=== PATIENT | female | born 1945 | race Caucasian/White ===

== ENCOUNTER → 2018-12-02 | Outpatient (CLI) | payer OTHER ==
[~2018-12-02] MED LIST: ALPR.25 PO; BENZ100A PO; MELO7.5 PO; Multiple Vitam1 EAC1 PO; NAPR375 PO; OMEP40CA12 PO; PROP60 PO; PROP80ER PO; SIMV10 PO; VAGIFEM10 MCG VG; VALS80 PO; VENL150ER PO; VENLAFAXINE HC150 MG PO
[2018-12-02 13:10] LABS: BASOPHILS ABSOLUTE AUTO 0.04 K/mm3 (0.00-0.23); BASOPHILS PERCENT AUTO 0 % (0-2); EOSINOPHILS ABSOLUTE AUTO 0.02 K/mm3 (0.00-0.68); EOSINOPHILS PERCENT AUTO 0 % (0-6); Hematocrit 45.1 % (33.0-51.0); Hemoglobin 14.9 g/dL (11.5-16.0); IMMATURE GRAN ABSOLUTE AUTO 0.07 K/mm3 (0.00-0.10); IMMATURE GRAN PERCENT AUTO 1 % (0-1); LYMPHOCYTES ABSOLUTE AUTO 1.41 K/mm3 (0.84-5.20); LYMPHOCYTES PERCENT AUTO 13 % (21-46); MONOCYTES ABSOLUTE AUTO 1.02 K/mm3 (0.16-1.47); MONOCYTES PERCENT AUTO 9 % (4-13); Mean Corpuscular HGB 26.8 pg (26.0-34.0); Mean Corpuscular Volume 81 fL (80-100); NEUTROPHILS ABSOLUTE AUTO 8.75 K/mm3 (1.96-9.15); NEUTROPHILS PERCENT AUTO 77 % (41-73); Platelet Count 266 K/mm3 (150-400); RDW Coefficient Variation 14.6 % (11.7-14.2); RDW Standard Deviation 43.2 fL (35.1-46.3); Red Blood Cell Count 5.57 M/mm3 (3.80-5.20); White Blood Cell Count 11.31 K/mm3 (4.00-11.30)
[2018-12-02 13:16] LABS: Bun/Creatinine Ratio 22.2 (12.0-20.0); Calcium, Blood 9.5 mg/dL (8.5-10.1); Creatinine, Blood 1.26 mg/dL (0.40-1.00)
== END | disposition home or self-care (01) ==
LOC: LAB SHORT 13:02 → EFM RAD 13:02 → EDSTATUS 14:35
PROVIDERS: Family Medicine
DX: J18.0 Bronchopneumonia, unspecified organism (principal); R06.02 Shortness of breath
CPT/HCPCS: 71046; 80048; 83880; 85025

== ENCOUNTER → 2020-09-05 | Outpatient (CLI) | payer MEDICARE | LOC: PLD 11:00 → LAB SHORT 11:00 | DX: N39.0 Urinary tract infection, site not specified (principal) | CPT/HCPCS: 87077; 87086; 87186 ==

== ENCOUNTER → 2021-12-10 | Outpatient (CLI) | payer MEDICARE, OTHER ==
[~2021-12-10] MED LIST changes: +Hair, Skin & N1 EACH PO; +LOSA50 PO; +VENLAFAXINE HC225 MG PO
[2021-12-10 13:15] LABS: Source, Urine Voided
[2021-12-10 14:50] LABS: Bilirubin, Urine Neg (Neg); Blood, Urine Neg (Neg); Glucose Qualitative, Urine Neg (Neg); Ketones, Urine Neg (Neg); Leukocyte Esterase, Urine 2+ (Neg); Nitrite, Urine Neg (Neg); Protein, Urine Neg (Neg); Specific Gravity, Urine 1.015 (1.003-1.022); Urobilinogen, Urine NORM (Normal)
[2021-12-10 15:05] LABS: Appearance, Urine Clear (Clear); Color, Urine Pale Yellow (P-Yellow)
[2021-12-10 15:06] LABS: Bacteria Mod /hpf; Red Blood Cells, Urine 0-2 /hpf (0-2); Squamous Epithelial Cells Rare /hpf (Few)
== END | disposition home or self-care (01) ==
LOC: LAB SHORT 13:13
PROVIDERS: Family Medicine
DX: N39.0 Urinary tract infection, site not specified (principal)
CPT/HCPCS: 81001; 87086

== ENCOUNTER → 2022-03-04 | Outpatient (CLI) | payer OTHER ==
[2022-03-04 15:51] LABS: Appearance, Urine Clear (Clear); Bilirubin, Urine Neg (Neg); Blood, Urine Neg (Neg); Color, Urine Yellow (P-Yellow); Glucose Qualitative, Urine Neg (Neg); Ketones, Urine Neg (Neg); Leukocyte Esterase, Urine Neg (Neg); Nitrite, Urine Neg (Neg); Protein, Urine 1+ (Neg); Specific Gravity, Urine 1.015 (1.003-1.022); Urobilinogen, Urine NORM (Normal)
== END | disposition home or self-care (01) ==
LOC: LAB SHORT 12:00 → LAB 12:00
PROVIDERS: Family Medicine
DX: N39.0 Urinary tract infection, site not specified (principal)
CPT/HCPCS: 87077; 87086; 87186

== ENCOUNTER 2022-05-16 19:12 | Observation (INO) | payer OTHER ==
[~2022-05-16] VITALS: Ht 157.5 cm; Wt 95.1 kg
[~2022-05-16 19:12] MED LIST changes: -LOSA50 PO; +LOSARTAN POTAS100 M1 PO; +PROP120ER PO; -PROP80ER PO; -SIMV10 PO; +Simvastatin10 MG PO
[2022-05-16] MEDS ORDERED: DESVENLAFAXINE50 M3 PO (19:42)
[2022-05-16] MEDS ORDERED: ALPRAZOLAM0.5 M1 PO (19:43)
[2022-05-16 19:55] LABS: BASOPHILS ABSOLUTE AUTO 0.03 K/mm3 (0.00-0.23); BASOPHILS PERCENT AUTO 0 % (0-2); EOSINOPHILS ABSOLUTE AUTO 0.42 K/mm3 (0.00-0.68); EOSINOPHILS PERCENT AUTO 6 % (0-6); Hematocrit 40.5 % (33.0-51.0); IMMATURE GRAN ABSOLUTE AUTO 0.01 K/mm3 (0.00-0.10); IMMATURE GRAN PERCENT AUTO 0 % (0-1); LYMPHOCYTES PERCENT AUTO 26 % (21-46); MONOCYTES ABSOLUTE AUTO 0.52 K/mm3 (0.16-1.47); MONOCYTES PERCENT AUTO 7 % (4-13); Mean Corpuscular HGB 26.6 pg (26.0-34.0); Mean Corpuscular HGB Conc 32.1 g/dL (31.5-36.5); Mean Corpuscular Volume 83 fL (80-100); Mean Platelet Volume 9.9 fL (9.1-12.4); NEUTROPHILS ABSOLUTE AUTO 4.38 K/mm3 (1.96-9.15); NEUTROPHILS PERCENT AUTO 60 % (41-73); Platelet Count 198 K/mm3 (150-400); RDW Standard Deviation 45.5 fL (35.1-46.3); Red Blood Cell Count 4.89 M/mm3 (3.80-5.20); White Blood Cell Count 7.26 K/mm3 (4.00-11.30)
[2022-05-16 20:12] LABS: Ethanol (Alcohol), Blood, Med <3 mg/dL; Magnesium, Blood 2.3 mg/dL (1.6-2.4); Salicylate <1.7 mg/dL (2.8-20.0)
[2022-05-16 20:13] LABS: Acetaminophen, Random <2.0 ug/mL (10.0-30.0); Alanine Aminotransfer (ALT/SGP 23 U/L (12-78); Albumin, Blood 3.5 g/dL (3.4-5.0); Alk Phos 106 U/L (50-136); Anion Gap 6 mmol/L (6-16); Aspartate Aminotrans (AST/SGOT 15 U/L (12-37); Bilirubin, Total 0.7 mg/dL (0.1-1.0); Blood Urea Nitrogen 19 mg/dL (8-24); Bun/Creatinine Ratio 24.1 (12.0-20.0); CO2, Blood 28 mmol/L (21-32); Chloride, Blood 105 mmol/L (98-108); Creatinine, Blood 0.79 mg/dL (0.40-1.00); Globulin, Blood 3.5 g/dL (2.2-4.0); Glomerular Filtration Rate 77 (60-); Glucose, Blood 96 mg/dL (70-99); Potassium, Blood 4.1 mmol/L (3.5-5.5); Sodium, Blood 139 mmol/L (136-145)
[2022-05-16 20:46] LABS: Influenza A, PCR NEGATIVE (NEGATIVE); Influenza B, PCR NEGATIVE (NEGATIVE); Resp Syncytial Virus, PCR NEGATIVE (NEGATIVE); SARS-Cov-2 (COVID-19) PCR, MMC NEGATIVE (NEGATIVE)
[2022-05-16 21:45] LABS: Source, Urine Straight Cath
[2022-05-16] MEDS ORDERED: OZEMPIC0.25 MG/0. SC (22:23)
[2022-05-16] MEDS ORDERED: Primidone50 MG PO (22:24)
[2022-05-16 22:25] LABS: Appearance, Urine Hazy (Clear); Bilirubin, Urine Neg (Neg); Blood, Urine Neg (Neg); Color, Urine Yellow (P-Yellow); Glucose Qualitative, Urine Neg (Neg); Ketones, Urine Neg (Neg); Leukocyte Esterase, Urine Neg (Neg); Nitrite, Urine Neg (Neg); Protein, Urine Neg (Neg); Specific Gravity, Urine 1.025 (1.003-1.022); Urobilinogen, Urine NORM (Normal)
[2022-05-16] MEDS ORDERED: LOPE2C (22:26)
[2022-05-16] MEDS ORDERED: ACET500 PO (22:26)
[2022-05-16 22:59] LABS: Bacteria Mod /hpf; Mucus Light (0-Heavy); Red Blood Cells, Urine 0-2 /hpf (0-2); Squamous Epithelial Cells Mod /hpf (Few); White Blood Cells, Urine 0-2 /hpf (0-5)
[2022-05-16 23:44] LABS: U Amphetamine Screen Not Detected; U Barbituate Screen Not Detected; U Benzodiazapine Screen DETECTED; U Buprenorphine Screen Not Detected; U Cannabinoids Screen Not Detected; U Cocaine Screen Not Detected; U Methadone Screen Not Detected; U Methamphetamine Screen Not Detected; U Opiates Screen Not Detected; U Oxycodone Screen Not Detected; U Phencyclidine Screen Not Detected; U Propoxyphene Screen Not Detected
--- NOTE | 2022-05-17 00:35 | NUR ---
SI NOTE PT STATES THE SHE DOES NOT FEEL SUICIDAL NOW THAT SHE IS ON THE FLOOR. PT STATES THAT SHE FELT SUCIDAL BECAUSE OF FAMILY ITSSUES AND SHE FEELS THAT SHE IS NOT HANDLING THEM WELL. PT STATES THAT SHE HAS THOUGHT ABOUT SICISDE FOR A COUPLE OF MONTHS NOW AND EVEN SEEKED CARE BUT DID NOT HELP. PT IS LETHARGIC BUT A/OX4, ABLE TO ANSWER QUESTIOS APPROPIATELY. STATES THAT SHE NEEDS A SLEEP STUDY FOR APNEA.
--- NOTE | 2022-05-17 00:52 | NUR ---
SI REASSESSMENT WHEN ASKING PT IF SHE FELT LIKE KILLER HERSELF STILL PT STATES NO, IT WAS A ONCE IN A LIFE TIME THING.
--- NOTE | 2022-05-17 05:56 | NUR ---
SHIFT SUMMARY ASSUMED CARE OF PT AT 0015. PT IS A/OX4 BUT LETHARGIC AND FORGETFUL. PT WAS ABLE TO TELL ME SHE WAS IN THE [facility] IN [place] BUT AFTER HAVING THE CONVERSATION, ASKED IF SHE WAS IN [facility]. 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 PT ALSO STATES THAT SHE TOOK HER MEDICATION OVERDOSE ON 05/15 BUT CAREGIVER STATES PT WAS ACTING NORMAL FOR BREAKFAST THE 05/16 BUT WAS ABSENT DURING DINNER AND FOUND UNRESPONSIVE. PT SLEPT T/O THE NIGHT. NO EKG CHANGES. POISON CONTROL STATES TO JUST WATCH FOR SEIZURES AND AND QRS OR QTC CHANGES. PT STATES THAT SHE DOESNT WANT TO KILL HERSELF ANYMORE AND IT WAS A ONE TIME THING. CAREGIVER AGREED THAT PT HAS A COMPLICATED HOME LIFE; PTS CHILDEN ARE INTO DRUGS AND DO OTHER THINGS TO CAUSE PT STRESS. RT REPORTS LA DOES HAVE SLEEP APNEA AND HAD TO PUT OXYGEN ON THE PT CPAP.
--- NOTE | 2022-05-17 07:25 | NUR ---
ASSUMED CARE: PT RESTING QUIETLY AT THIS TIME. NSR IN 60S ON TELE. CPAP IN PLACE. SITTER AT BEDSIDE. NO ACUTE NEEDS AT THIS TIME.
--- NOTE | 2022-05-17 07:53 | NUR ---
PT IS SLOW TO RESPOND BUT ORIENTED TO SELF. WHEN ASKED WHERE SHE WAS SHE SAID "IN BED." UNABLE TO STATE WHAT BUILDING SHE WAS IN. DENIES SI.
--- NOTE | 2022-05-17 14:22 | NUR ---
APS CONTACTED: PT TOLD DR ANDRADE THAT HER SON KASEY IS STEALING HER MONEY FOR DRUGS. PT'S DAUGHTER MAHNAZ CALLED WITH THE SAME ACCUSATION. SPOKE WITH PT DIRECTLY WHO CONFIRMS THAT KASEY IS HER POA AND THAT SHE TOLD HIM TO NOT USE ANY MONEY SO HER BILLS COULD GET PAID BUT SHE THEN RECIEVED AN EVICTION NOTICE YESTERDAY BECAUSE HER RENT HAD NOT BEEN PAID. DISCUSSED WITH EXECUTIVE ADMINISTRATOR. THIS RN CALLED APS TO MAKE REPORT. COMMUNITY EDUCATION COORDINATOR AWARE
--- NOTE | 2022-05-17 17:30 | NUR ---
SHIFT SUMMARY: PT WAS SEEN BY DR SAMS THIS AFTERNOON AND HE REDUCED HER TO LOW SI BECAUSE SHE STATED SHE HAD NO PLANS TO HARM HERSELF WHILE IN THE HOSPITAL. HE IS RECOMMENDING [facility] THOUGH BECAUSE SHE WAS NOT SURE IF SHE WANTED TO STAY ALIVE. APS HAS BEEN CALLED AND PT'S SITUATION WITH SON HAS BEEN REPORTED. MESSAGE LEFT WITH CARBON BRUSHER ASSEMBLER TO DISCUSS PT'S NEED FOR PAYEE WITH DC PLANNING.
--- NOTE | 2022-05-18 05:51 | NUR ---
SHIFT SUMMARY ASSUMED CARE OF PT AT 1900. PT IS A/OX4 BUT STILL LETHARGIC. PT EASILY AWAKENED BUT GOES TO SLEEP QUICKLY. HEART SOUNDS REGULAR. LUNG SOUNDS CLEAR. PT WORE CPAP T/O THE NIGHT. PT HOD NO NEW COMPLAINTS AND WAS CONTIENT T/O THE NIGHT. 1P ASSIST TO BSC. POISON CONTROL CALLED FOR UPDATE BUT HAD NO FURTHER INSTRUCTIONS, STATED THEY WOULD CALL BACK IN THE AM FOR ANOTHER UPDATE.
--- NOTE | 2022-05-18 07:15 | NUR ---
ASSUMED CARE: PT RESTING QUIETLY, NSR IN THE 60S. CPAP IN PLACE. NO ACUTE NEEDS OR CONCERNS.
--- NOTE | 2022-05-18 16:55 | NUR ---
REPORT GIVEN TO MEDICAL FLOOR NURSE. PT TRANSFERRED VIA WHEEL CHAIR TO ROOM 326 WITH TELE. NO ACUTE NEEDS OR CONCERNS.
--- NOTE | 2022-05-18 17:14 | NUR ---
PCU TRANSFER RECEIVED REPORT FROM [facility] EDUCATIONAL SPECIALIST. RECEIVED PT VIA W/C TO ROOM 326. PLACED IN BED, MADE COMFORTABLE, ORIENTED TO ROOM AND UNIT ROUTINE. DENIED ANY DISCOMFORT OR PAIN.
--- NOTE | 2022-05-18 18:23 | NUR ---
SHIFT SUMMARY PT A&O X 3. VSS. IS PLEASANT & COOPERATIVE. HAS VISIBLE TREMORS WHICH IS HER BASELINE. SHE DID EAT DINNER WITH MINIMAL ASSISTANCE. PLAN IS FOR IN-PT PSYCH UPON DC FROM HOSPITAL.
--- NOTE | 2022-05-19 04:39 | NUR ---
SHIFT SUMMARY PATIENT HAD NO ACUTE CHANGES. NO SUICIDAL IDEATION NOTED. AXOX 4 AND ONE ASSIST W/FWW TO BSC. PIV REMAINS INTACT. DUST MIXER NSR 76. ON ROOM AIR STATING MOSTLY >90% ON CONTINUOUS PULSE OXIMETRY WITH OCCASIONAL DROP TO HIGH 70'S AND BACK INTO 90'S SLEEPING. DENIES PAIN, SOB, AND N/V. VSS/AFEBRILE. REPORTED WANTED TO GET TO SLEEP EARLIER IN SHIFT. CALL LIGHT IN REACH. BED IN LOWEST POSITION. WILL CONTINUE TO MONITOR UNTIL DAY SHIFT NURSE ASSUMES CARE.
--- NOTE | 2022-05-19 18:44 | NUR ---
SHIFT SUMMARY PT A&O X 4. VSS. SLEPT MUCH OF THE SHIFT. SAT UP IN CHAIR FOR DINNER. TELE DC'D BY . IS ON CONT BI-OX, SATS ARE >90%. WEARS C-PAP AT [facility]. IS ON RA DURING THE DAY. [facility] STAFF GIVEN UPDATE TODAY. STAFF IS REQUESTING THAT IF PT RETURNS TO [facility] THAT SHE NOT BE ABLE TO MANAGE HER OWN MEDS.
--- NOTE | 2022-05-20 04:14 | NUR ---
SHIFT SUMMARY PATIENT HAD NO ACUTE CHANGES OBSERVED. AXOX 3 AND ONE ASSIST TO BR. RT IN ROOM TO SETUP CPAP FOR NOC. ON CONTINUOUS PULSE OXIMETRY STATING 96%. DENIES PAIN, SOB, AND N/V. VSS/AFEBRILE. SLEPT MOST OF SHIFT. CALL LIGHT IN REACH. BED IN LOWEST POSITION. WILL CONTINUE TO MONITOR UNTIL DAY SHIFT NURSE ASSUMES CARE.
--- NOTE | 2022-05-20 17:31 | NUR ---
DAYSHIFT SUMMARY Patient in bed resting, quiet/cooperative with cares. Sleeping frequently throughout the day. Patients son came to visit, RN checked in with patient. Patient stated it was okay for her son to visit. Vitals stable, no other concerns at this time. No acute changes, awaiting placement.
--- NOTE | 2022-05-21 04:03 | NUR ---
NUISANCE WILDLIFE TRAPPER SUMMARY AWAKE IN BEDISDE RECLINER AT SHIFT COMMENCE. ASKED FOR AND ASSISTED TO BED AT HS. HAS BEEN RESTING QUIETLY WITH FEW INTERRUPTIONS THROUGHOUT NOCT. NO VOICED SELF HARM INTENTIONS. AFFECT CHEERFUL WITH INTERACTING WITH STAFF. CALL LIGHT IN REACH. VSS. WILL CONTINUE TO MONITOR
[2022-05-21] MEDS ORDERED: TRAZ50 PO (11:50)
--- NOTE | 2022-05-21 17:25 | NUR ---
DAYSHIFT SUMMARY Patient doing well today, pleasant with staff, calls appropriately for help. Denies SI, no reports of self harm. MD placed discharge orders, facility stated they need to come tomorrow afternoon to evaluate patient to determine if safe to return. MD hold DC'd today, release of hospital detaination document in hard chart. Vitals stable, will continue to monitor.
--- NOTE | 2022-05-21 23:38 | NUR ---
SILVER DESIGNER SUMMARY PT A/OX4. PLEASANT AND COOPERATIVE. FOUND PT IN BATHROOM AT BEGINNING OF SHIFT; D/NOT USE CALL LIGHT; BED ALARM IN PLACE. VISIBLE TREMORS/WEAKNESS NOTED. ASSISTED BACK TO BED W/FWW. PT C/O OF ITCHY RASH ON LOWER BACK. NOTED RED RAISED/BLOTCHY RASH. FOLLOWED UP W/DR BALLARD; APPROVED CREAM AND REFERRED TO PHARMACY FOR RECOMMENDATION. PT DENIES SI/SELF HARM. WILL CONT TO MONITOR. CALL LIGHT IN REACH.
--- NOTE | 2022-05-22 17:14 | NUR ---
SHIFT SUMMARY: PATIENT A&OX4. PLEASANT AND COOPERATIVE WITH CARE. UP WITH SBA & FWW. USE CALL LIGHT APPROPRIATELY AND HAS BEEN SITTING UP IN CHAIR T/O SHIFT. NO ACUTE CHANGES THIS SHIFT. VITALS SIGNS REVIEWED. VISIBLE TREMORS NOTED. PATIENT HAD SHOWER TODAY WITH BATCH RECORDS CLERK AND TOLERATED WELL. PATIENT REPORT OF ITCHINESS TO LOWER BACK APPLIED NYSTATIN CREAM PER EMAR. AWAITING FOR [facility] RESPONSE TO EVALUATE PATIENT. CALL LIGHT IN REACH.
--- NOTE | 2022-05-23 04:13 | NUR ---
SHIFT SUMMARY PATIENT HAD NO ACUTE CHANGES OBSERVED. AXOX 4 WITH BASELINE TREMORS. ASSIST WITH PO MEDICATION. ONE ASSIST TO BR WITH FWW. PIV REMAINS INTACT. DENIES PAIN, SOB, AND N/V. USES CPAP AT NIGHT STATING >92% ON CONTINUOUS PULSE OXIMETRY. VSS/AFEBRILE. REPORTED WANTED TO GET TO SLEEP EARLY. COOPERATIVE WITH CARE. CALL LIGHT IN REACH. BED IN LOWEST POSITION. WILL CONTINUE TO MONITOR UNTIL DAY SHIFT NURSE ASSUMES CARE.
--- NOTE | 2022-05-23 16:34 | NUR ---
Shift Summary A/O, pleasant/cooperative. Up in chair for lunch and dinner. BM today, voiding well ambulating to bathroom. Calling appropriately. Received call from son who was suppose to be in recovery according to patient. Good appetite. Did not see [facility] come and reasses. Called [facility] RE reassessing patient's qualification to return to [place]. Mary[place]uy, Health Carding Doubler, plans to review patient tomorrow.
--- NOTE | 2022-05-24 04:05 | NUR ---
SHIFT SUMMARY PATIENT HAD NO ACUTE CHANGES. AXOX 4 WITH BASELINE ESSENTIAL TREMORS. ONE ASSIST TO BR. WILL CALL APPROPRIATELY. REPORTED INTERIANO X ONE AND TYLENOL 650 MG GIVEN PER EMAR WITH GOOD EFFECT. VSS/AFEBRILE. DENIES CHEST PAIN, SOB, AND N/V. ON ROOM AIR. WATCHED TV FIRST PART OF SHIFT. COOPERATIVE WITH CARE. CALL LIGHT IN REACH. BED IN LOWEST POSITION. WILL CONTINUE TO MONITOR UNTIL DAY SHIFT NURSE ASSUMES CARE.
--- NOTE | 2022-05-24 18:29 | NUR ---
SHIFT SUMMARY PT A&OX4 AND IN PLEASENT MOOD. ANU IN TO SEE PT THIS SHIFT, ANU STATED UNKNOWN IF RETURN IS SAFE @ THIS TIME. BOYFRIEND IN TO SEE PT THIS SHIFT. CALL LIGHT W/IN REACH. VSS.
--- NOTE | 2022-05-24 23:59 | NUR ---
PT AWAKE DURING SHIFT REPORT, SITTING UP TO CHAIR AT BS, TALKING ON PHONE. PT IS A&O, PLEASANT AND CO-OP WITH CARE. ABLE TO MAKE NEEDS KNOWN. ESSENTIAL TREMORS NOTED; PER REPORT, SINCE PT WAS 20 YRS OF AGE. CALLED FOR ASSIST TO BTHRM; 1P SBA USING FWW. PT AMBULATED TO BTHRM AND THEN TO BED. SCD'S PLACED WHEN BACK TO BED. RT NOTIFIED TO ASSIST WITH BIPAP SET UP AND PLACEMENT. BED ALARM PLACED FOR SAFETY. PT RESTING QUIETLY AT THIS TIME.
--- NOTE | 2022-05-25 07:24 | NUR ---
A&Ox4. PLEASANT AND COOPERATIVE WITH CARE. CPAP AND CONTINUOUS BI-OX AT NIGHT. BED ALARM D/T GETTING UP AND AMBULATING TO BATHROOM WITHOUT CALLING. NO ACUTE CONCERNS T/O THE NIGHT. AWAITING PLACEMENT. REPORT TO ONCOMING RN.
--- NOTE | 2022-05-25 18:50 | NUR ---
SHIFT SUMMARY PT A&OX 4 AND IN PLEASENT MOOD T/O SHIFT. SHOWERED THIS SHIFT. PT UP W/ STEADY GAIT, SBA. BOYFRIEND IN TO SEE PT THIS SHIFT. CALL LIGHT W/IN REACH, CONT. PULSE OX IN PLACE, RA @ THIS TIME. VSS.
--- NOTE | 2022-05-26 07:15 | NUR ---
States it took awhile to fall asleep tonight. refused Cpap but cont biox at 95% on room air. Seemed in good spirits last night. No safety concerns at this time.
--- NOTE | 2022-05-26 17:12 | NUR ---
SHIFT SUMMARY PT A&OX4 AND IN PLEASENT MOOD T/O SHIFT. PT BOYFIEND IN TO VISIT PT DURING VISITING HOURS. PT ENJOYED WATCHING TV SHOW IMPRACTICAL JOKERS, LAUGHING T/O SHIFT. NO SUICIDAL IDEATION VERBALIZED TO THIS RN FRIDAY, FRIDAY, OR THIS SHIFT. PT APPEARS TO BE WELL SPIRITED, HAPPY, LAUGHING AND TALKATIVE. AMBULATING WITH STEADY GAIT. CALL LIGHT W/IN REACH.
--- NOTE | 2022-05-27 06:08 | NUR ---
SHIFT SUMMARY: NO ACUTE CHANGES THIS SHIFT. PATIENT HAS NO COMPLAINTS OF PAIN OR DISCOMFORT. COMLIANT WITH CPAP DURING SLEEP. CALLING FOR ASSIST OOB TO THE BATHROOM APPROPRIATELY.
--- NOTE | 2022-05-27 18:11 | NUR ---
PT PLEASANT AND COOPERATIVE T/O SHIFT, UP TO BEDSIDE CHAIR. NO SUICIDE IDEATION EXPRESSED TO THIS NURSE TODAY. WILL CONTINUE TO MONITOR AND REPORT TO ONCOMING RN.
--- NOTE | 2022-05-28 06:44 | NUR ---
SHIFT SUMMARY: NO ACUTE CHANGES THIS SHIFT, VSS. REPORTED HEADACHE AT HS, TYLENOL WAS GIVEN WITH GOOD EFFECT. COMPLIANTS WITH CPAP WHILE SLEEPING. MAINTAINED STATS ABOVE 90% AT ALL TIMES.
--- NOTE | 2022-05-28 18:51 | NUR ---
NO ACUTE CHANGES NOTED THIS SHIFT, PT ALERT AND ORIENTED, PLEASANT AND COOPERATIVE. NO VERBALIZATION OF SUCIDIAL IDEATION. WILL CONTINUE TO MONITOR AND REPORT TO ONCOMING RN.
--- NOTE | 2022-05-29 07:54 | NUR ---
Rn summary: Patient is alert and oriented. No changes or welder 2nd shift. Pt did use CPAP and Biox on with sats in the mid 90's. Pt is ready for discharge. Pt is independant in room. Call light in reach.
--- NOTE | 2022-05-29 17:35 | NUR ---
NO ACUTE CHANGES THIS SHIFT. PATIENT VERY PLEASANT AND COOPERATIVE WITH CARE. DENIES ANY THOUGHTS OF HARMING HERSELF. TOLERATING REGULAR DIET. CALLS APPROPRIATELY FOR ASSISTANCE. SKIN INTACT. CPAP AT NOC, RA WHILE AWAKE. DENIES ANY PAIN OR DISCOMFORT. AWAITING [facility] CARE PLACEMENT.
--- NOTE | 2022-05-30 04:49 | NUR ---
SHIFT SUMMARY NO ACUTE CHANGES TO PT CONDITION. PT PLEASANT AND COOPERATIVE. NO COMPLAINTS AT THIS TIME. CALL LIGHT WITHIN HER REACH.
--- NOTE | 2022-05-30 17:39 | NUR ---
NO ACUTE CHANGES THIS SHIFT. PATIENT CONTINUES TO BE PLEASANT AND COOPERATIVE WITH CARE. AWAITING SKILLED NURSING CARE PLACEMENT. CALLS APPROPRIATELY FOR ASSISTANCE. VSS, CPAP AT [facility].
--- NOTE | 2022-05-31 05:15 | NUR ---
SUMMARY: PT A/OX4, CALLS APPROPRIATELY TO SPECIFY NEEDS AND IS PLEASANT AND COOPERATIVE W/CARE. SHE'S UP W/SBA AND FWW TO BATHROOM W/TREMOR OBSERVED THAT PT ADMITS HAVING AT BASELINE. PT TOLERATES CPAP AT HS W/CONT BIOX INTACT AND SPO2 WNL ON . VSS/AFEBRILE, NO ACUTE CHANGES. RETIREMENT PLACEMENT PENDING. WCTM AND REPORT TO DAY RN.
--- NOTE | 2022-05-31 18:06 | NUR ---
PATIENT A/OX4, UP WITH FWW AND 1 ASSIST. C/O NASAL CONGESTION, NASAL SPRAY AND GUAIFENESIN ORDERED TO TREAT. VSS, CPAP AT [facility], RA DURING THE DAY. NO OTHER CONCERNS THIS SHIFT. PATIENT AWAITING WEATHERIZATION AND HOUSING INSPECTOR CARE PLACEMENT. PLEASANT AND COOPERATIVE WITH CARE.
--- NOTE | 2022-06-01 06:08 | NUR ---
SHIFT SUMMARY PT IS ALERT AND ORIENTED. THERE HAVE BEEN NO ACUTE CHANGES T/O THE SHIFT. PT DENIES CHEST PAIN/PRESSURE OF SOB. PT'S ADMINISTRATIVE SUPPORT ASSISTANT WAS ELEVATED THIS AM. OTHER VITALS ARE STABLE AND IS ON ROOM AIR WITH SATS ABOVE 92%. SHE HAS BEEN USING CPAP T/O THE NIGHT. SHE HAS BEEN GETTING UP TO USE THE BATHROOM AND TOLERATING WELL. CALL LIGHT IS WITHIN REACH.
--- NOTE | 2022-06-01 06:11 | NUR ---
SHIFT SUMMARY PT IS ALERT AND ORIENTED. PT VITALS ARE STABLE AND IS ON 2LNC WITH SATS ABOVE 92%. PT DESATS INTO HIGH 80'S AND LOW 90'S WHEN NOT WEARING OXYGEN BUT WILL REFUSE TO WEAR IT DESPITE PT EDUCATION. SHE REFUSES TO WEAR PULSE OXIMETER WELL. 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 ANXIETY MEDS WERE GIVEN LAST NIGHT PER ORDER. PT REPORTS FEELING BETTER AND NOT SOB WHILE WEARING NC. SHE DENIES CHEST PAIN/PRESSURE. SHE IS ABLE TO GET UP TO BSC WITH MINIMAL ASSIST. CALL LIGHT IS WITHIN REACH.
--- NOTE | 2022-06-02 06:55 | NUR ---
Shift Summary Appears to have slept thoughout the night. Biox 93-91% while sleeping. Stated earlier in the shift that the nasal congestion had improved. Currently waiting for a "hearing" concering her living arrangemnts with [facility].
--- NOTE | 2022-06-03 04:29 | NUR ---
Shift Summary Still seems in good spirits. Discussed conversation with her son and his challenges. Hearing concering her living arrangemenst is 06/04 and she will need to facetime the meeting.
--- NOTE | 2022-06-04 05:24 | NUR ---
SHIFT SUMMARY: PT IS ALERT AND ORIENTED. PT IS CALM AND COOPERATIVE WITH CARE. PT CALLS APPROPRIATELY. PT IS INDEPENDENT IN THE ROOM. PT DENIES PAIN, NAUSEA, VOMITING, AND SOB. PT SLEPT MUCH OF THE NIGHT WHEN NOT DISTURBED. NO ACUTE CHANGES OR COMPLICATIONS THIS SHIFT. BED IN LOW POSITION, CALL LIGHT WITHIN REACH. WILL REPORT TO DAY NURSE.
--- NOTE | 2022-06-04 18:09 | NUR ---
SHIFT SUMMARY PT HAS HAD NO COMPLAINTS THIS SHIFT. PT UP IN CHAIR FOR ALL MEALS. NO ACUTE CHANGES THIS SHIFT. CALL LIGHT IN REACH. WILL CONTINUE TO MONITOR.
--- NOTE | 2022-06-05 06:01 | NUR ---
SHIFT SUMMARY: PT IS ALERT AND ORIENTED. PT IS CALM AND COOPERATIVE WITH CARE. PT CALLS APPROPRIATELY. PT IS INDEPENDENT IN THE ROOM. PT DENIES PAIN, NAUSEA, VOMITING, AND SOB. NO ACUTE CHANGES OR COMPLICATIONS THIS SHIFT. BED IN LOW POSITION, CALL LIGHT WITHIN REACH. AWAITING PLACEMENT. WILL CONTINUE TO MONITOR.
--- NOTE | 2022-06-05 17:59 | NUR ---
SUMMARY PT SITTING UP IN THE CHAIR AT THE BEDSIDE EATING DINNER, PT HAS BEEN PLEASANT AND COOPERATIVE WITH CARE T/O THE DAY, INDEP IN THE ROOM, PT DENIES PAIN OR SOB, NO COMPLAINTS, VSS, WILL CONT TO MONITOR
--- NOTE | 2022-06-05 19:18 | NUR ---
ASSUMPTION OF CARE: ASSUMED CARE FROM CARLOTA BARCENAS, PATIENT UP TO BATHROOM AND BACK INTO BED INDEPENDENTLY. DENIES NEEDS OR CONCERNS AT THIS TIME. NO C/O. WATCHING TV.
--- NOTE | 2022-06-05 20:07 | NUR ---
ASSESSMENT: PATEINT WATCHING TV, DENIES NEEDS OR C/O AT THIS TIME. MEDICATIONS ADMINISTERED PER RX. PATIENT DOES REPORT SOME MINIMAL TINGLING TO R HAND AND HAS NOTICED R HAND WEAKNESS THAT SHE REPORTS IS NOT ENTIRELY NEW. WILL CONTINUE TO MONITOR FOR ANY CHANGES AND REPORT TO PROVIDER NEEDED.
--- NOTE | 2022-06-06 05:16 | NUR ---
SHIFT SUMMARY: PATIENT HAS BEEN RESTING QUIETLY THROUGHOUT NIGHT. NO C/O OR REQUESTS. AWAKENS EASILY TO VERBAL STIMULI. NO FURTHER CHANGES THIS SHIFT. WILL REPORT TO ONCOMING SHIFT.
--- NOTE | 2022-06-06 17:26 | NUR ---
NO ACUTE CHANGES AT THIS TIME. PT DENIES ANY PAIN AND IS INDEPENDENT IN ROOM. PT IS ABLE TO MAKE NEEDS KNOWN AND HAS CALL LIGHT WITHIN REACH. WILL CONTINUE TO MONITOR.
--- NOTE | 2022-06-06 19:25 | NUR ---
ASSUMPTION OF CARE: PATIENT SITTING UP IN CHAIR FINISHING DINNER AND WATCHING TV. REPORTS SHE HAD A GOOD DAY. DENIES NEEDS OR C/O AT THIS TIME.
--- NOTE | 2022-06-07 03:28 | NUR ---
NURSE NOTE: PATIENT HAS BEEN RESTING QUIETLY WHEN NOT INTERUPTED. AWAKENS EASILY TO VERBAL STIMULI. DENIES NEEDS, C/O, OR REQUESTS.
--- NOTE | 2022-06-08 04:25 | NUR ---
IN FILE OPERATOR SUMMARY NO ACUTE CHANGES. PT INDEPENDENT IN ROOM. PT ON CPAP AND CONTINUOUS PULSE OX T/O THE NIGHT. INTERMITTANT EPISODES OF BRADYCARDIA IN THE 50'S WHILE SLEEPING. PT IS PLEASANT AND COOPERATIVE. C/O OF NECK PAIN; PT USING HEATING PAD; MED W/650MG TYLENOL P/EMAR. PT CALL LIGHT IN REACH.
--- NOTE | 2022-06-09 06:25 | NUR ---
SHIFT SUMMARY ASSUMED CARE OF PT AT APPROX 0200. PT HAS BEEN RESTING COMFORTABLY THROUGHOUT REMAINDER OF SHIFT. CPAP ON FOR SLEEPING. VITAL SIGNS STABLE. NO ACUTE CHANGES. WILL CONTINUE TO MONITOR AND REPORT TO ONCOMING RN.
--- NOTE | 2022-06-09 17:35 | NUR ---
SHIFT SUMMARY PT INDEPENDENT IN ROOM. AMBULATING TO BATHROOM THEN EITHER SITTING IN CHAIR OR LAYING DOWN FOR A NAP. WATCHING TV MOST OF DAY. REPORTS LESS NASAL DRAINAGE THAN YESTERDAY. VISITOR IN TO SHORT TIME.
--- NOTE | 2022-06-10 04:48 | NUR ---
SHIFT SUMMARY NO ACUTE CHANGES OVERNIGHT. VSS. TOLERATING PO INTAKE DENIES N/V. INDEPENDENT IN ROOM. PLAN: WAITING FOR GUARDIANSHIP AND PLACEMENT. PT HAS BEEN CALM AND COOPERATIVE WITH CARE. PLEASANT. AOX4. APPEARS TO HAVE TREMORS WHICH IS HER BASELINE. DENIES DIZZINESS/LIGHTHEADEDNESS. NO IV ACCESS. VOIDING WITHOUT DIFFICULTY. CALL LIGHT WITHIN REACH. WILL PROVIDE REPORT TO ONCOMING NURSE.
--- NOTE | 2022-06-10 18:59 | NUR ---
SHIFT SUMMARY: PT A/O X 4 IND IN ROOM, PLEASANT AND COOPERATIVE. PT DENIES SUICIDE IDEATION OR PLAN. PT SMILES WITH INTERACTIONS. PT HAD VISITOR TODAY FROM [facility] REPRSENTATIVE TO DO EVAL. PT WAS UP IN HER CHAIR MOST OF THE DAY AND WATCHED TV. SHE ATE WELL. PT DID NOT REPORT ANY CONCERNS UNTIL END OF SHIFT WHEN SHE REPORTED SHE FELT WARM. TEMP TAKEN AND WAS 99.4. WILL REPORT TO ONCOMING RN. NO OTHER CONCERNS AT THIS TIME. PT RESTING IN ROOM WITH EYES SHUT RR E/U, LIGHTLY SNORING AT THIS TIME.
--- NOTE | 2022-06-11 04:35 | NUR ---
SHIFT SUMMARY PT AOX4, PLEASANT AND COOPERATIVE WITH CARE. PT IS AWAITING PLACEMENT, POSSIBLY AT [facility] WHO HAS ALREADY EVALUATED HER. BASELINE TREMORS PRESENT. PT INDEPENDANT IN THE ROOM. NO ACUTE EVENTS, VSS, SLEEPING COMFORTABLY.
--- NOTE | 2022-06-11 16:32 | NUR ---
SHIFT SUMMARY PATIENT DENIES PAIN, NAUSEA, AND SHORTNESS OF BREATH. PATIENT UP INDEPENDENT IN ROOM. GOOD APPETITE. LOVENOX DISCONTINUED, XARELTO ORDERED FOR DVT PROPHYLAXIS. FIANCE VISITED. READY FOR DISCHARGE PENDING PLACEMENT. PLEASANT AND COOPERATIVE WITH CARE.
--- NOTE | 2022-06-12 18:08 | NUR ---
SHIFT SUMMARY PATIENT UP INDEPENDENT IN ROOM. COMMUNICATES NEEDS EASILY. DENIES PAIN, NAUSEA, AND SHORTNESS OF BREATH. GOOD APPETITE. PLEASANT AND COOPERATIVE WITH CARE. DISCHARGE PENDING PLACEMENT.
--- NOTE | 2022-06-12 22:13 | NUR ---
PATIENT STATUS NOTE: MEDICATIONS HAVE BEEN ADMINISTERED PER RX. PATIENT DENIES C/O OR NEEDS. READY FOR BED, BI-PAP IN PLACE, DOOR CLOSED PER PATIENT REQUEST. PATIENT IS VERY PLEASANT AND COOPERATIVE WITH CARE.
--- NOTE | 2022-06-13 05:56 | NUR ---
SHIFT SUMMARY: PATIENT RESTING WHEN UNDISTURBED. HAS HAD NO C/O OR REQUESTS T/O NIGHT. NO NEEDS AT THIS TIME. NO FURTHER CHANGES. WILL REPORT TO ONCOMING SHIFT.
--- NOTE | 2022-06-13 18:44 | NUR ---
SHIFT SUMMARY PATIENT INDEPENDENT IN ROOM. PLEASANT AND COOPERATIVE. NO COMPLAINTS OF PAIN, NAUSEA, OR SHORTNESS OF BREATH. AWAITING PLACEMENT IN ASSISTED LIVING FACILITY.
--- NOTE | 2022-06-13 20:03 | NUR ---
191 PT SITTING IN CHAIR AT BEDSIDE, DENIES ANY DISCOMFORT AT THIS TIME. PT REQUESTED A SHOWER, GOT HER STUFF SET UP FOR HER AND CHANGED HER BEDDING. PT WILL LET US KNOW WHEN SHE IS DONE SO SHE CAN GET ON HER CPAP FOR THE NIGHT. PT IS INDEPENDENT. NO OTHER APPARENT SIGNS OF DISTRESS. CALL LIGHT IS IN REACH.
--- NOTE | 2022-06-14 02:27 | NUR ---
06/13/22 2200 PT SITTING IN CHAIR, WATCHING TV. NO APPARENT SIGNS OF DISTRESS. CALL LIGHT IS IN REACH.
--- NOTE | 2022-06-14 02:28 | NUR ---
0000 PT LYING IN BED, AWAKE, WATCHING TV. NO APPARENT SIGNS OF DISTRESS. CALL LIGHT IS IN REACH.
--- NOTE | 2022-06-14 02:28 | NUR ---
PT LYING IN BED, EYES CLOSED, APPEARS TO BE RESTING. BREATHING IS EVEN, UNLABORED. NO APPARENT SIGNS OF DISTRESS. CALL LIGHT IS IN REACH.
--- NOTE | 2022-06-14 06:07 | NUR ---
0400 PT REQUESTED AND RECIEVED XANAX, WILL EVAL FOR EFFECT. NO OTHER APPARENT SIGNS OF DISTRESS. CALL LIGHT IS IN REACH.
--- NOTE | 2022-06-14 06:08 | NUR ---
PT AAO X 4, ON RA. DENIED ANY DISCOMFORT FOR THIS SHIFT.
--- NOTE | 2022-06-14 06:08 | NUR ---
PT LYING IN BED, EYES CLOSED, APPEARS TO BE RESTING. BREATHING IS EVEN, UNLABORED. NO APPARENT SIGNS OF DISTRESS. CALL LIGHT IS IN REACH. NO OTHER CHANGES THIS SHIFT.
--- NOTE | 2022-06-15 05:30 | NUR ---
SHIFT SUMMARY; PT IS AXO X4. PT IS PLEASANT AND OVERALL WAS IN A GOOD MOOD THROUGHOUT THE SHIFT.PT IS INDEPEDENT WHILE AMBULATING IN THE ROOM. PT IS CONTINENT OF URINE AND STOOL AND THEREFORE IS INDEPENDENT WITH BATHROOM PRIVILEDGES. PT DENIES PAIN, SOB OR NASAL DRAINAGE. ESSENTIAL TREMOR IS PRESENT. PT IS CURRENTLY RESTING WITH CPAP ON IN BED, SATING AT 94%. THE PT'S BED IS IN THE LOWEST POSITION AND THE CALL LIGHT IS WITHIN REACH.
--- NOTE | 2022-06-15 17:32 | NUR ---
SHIFT SUMMARY- PT A/OX4, INDEP UP IN ROOM. PT DENIES ANY COMPLAINTS T/O THE DAY. PLEASANT AND COOPERATIVE. GOOD APPETITE. ON ROOM AIR DURING THE DAY AND CPAP AT HS. ESSENTIAL TREMOR NOTED. NO OTHER ACUTE CHANGES THIS SHIFT. PT AWAITING PLACEMENT.
--- NOTE | 2022-06-15 22:00 | NUR ---
PT LAYING IN BED, PT PUT CPAP ON HERSELF. PT HOOKED UP TO CONTINOUS BIOX WHILE SLEEPING WITH CPAP. PT REFUSED SCD'S. PT'S CALL LIGHT IS AT HER SIDE AT THIS TIME.
--- NOTE | 2022-06-16 05:57 | NUR ---
SHIFT SUMMARY: PT IS AXO X3-4, WITH VERY OCCASIONAL FORGETFULLNESS. ESSENTIAL TREMOR IS PRESENT. PT REQUESTED XANAX LAST NIGHT FOR ANXIETY AT APPROXIMATLEY 0330. XANAX WAS GIVEN PER EMAR. CONITNUED TO MONITOR PT TO SEE THAT XANAX HELPED CALM THE PT. PT WAS PLEASANT THROUGHOUT THE SHIFT WITH NO ACUTE CHANGES MEDICALLY. PT IS CURRENTLY RESTING IN BED WITH CPAP AND CONTINOUS BIOX ON. PT SATED 92-95% THROUGHOUT THE NIGHT. CURRENTLY SATING AT 92%. CALL LIGHT IS AT BEDSIDE.
--- NOTE | 2022-06-16 18:12 | NUR ---
SHIFT SUMMARY- PT A/O, PLEASANT AND COOPERATIVE. INDEP UP IN ROOM. PT DENIES ANY COMPLAINTS T/O THE DAY. NO OTHER ACUTE CHANGES. CONTINUES TO AWAIT PLACEMENT.
--- NOTE | 2022-06-17 05:14 | NUR ---
SHIFT SUMMARY: PT IS AXO X4 WITH OCCASIONAL FORGETFULLNESS. PT REFUSED TO WEAR SCD'S SHE STATES THEY MAKE HER FEEL CONFINED TO THE BED. ESSENTIAL TREMOR IS PRESENT. AT THIS TIME THE PT IS RESTING IN BED WITH HER CPAP ON SLEEPING. CURRENTLY THE PT'S CONTINOUS BIOX READS 93%. THE PT'S BED IS IN THE LOWEST POSITION AND CALL LIGHT IS WITHIN REACH. PT DENIES ANY SOB OR PAIN THROUGHOUT THE SHIFT.
--- NOTE | 2022-06-17 23:16 | NUR ---
193 PT LYING IN BED, DENIES ANY DISCOMFORT AT THIS TIME. DENIES NEED FOR ANYTHING AT THIS TIME. NO APPARENT SIGNS OF DISTRESS. CALL LIGHT IS IN REACH.
--- NOTE | 2022-06-17 23:17 | NUR ---
2200 PT LYING IN BED, AWAKE, WATCHING TV. NO APPARENT SIGNS OF DISTRESS. CALL LIGHT IS IN REACH.
--- NOTE | 2022-06-18 05:42 | NUR ---
0000 PT LYING IN BED, EYES CLOSED, APPEARS TO BE RESTING. BREATHING IS EVEN, UNLABORED. NO APPARENT SIGNS OF DISTRESS. CALL LIGHT IS IN REACH.
--- NOTE | 2022-06-18 05:42 | NUR ---
0200 PT LYING IN BED, EYES CLOSED, APPEARS TO BE RESTING. BREATHING IS EVEN, UNLABORED. NO APPARENT SIGNS OF DISTRESS. CALL LIGHT IS IN REACH.
--- NOTE | 2022-06-18 05:44 | NUR ---
0400 PT LYING IN BED, EYES CLOSED, APPEARS TO BE RESTING. BREATHING IS EVEN, UNLABORED. NO APPARENT SIGNS OF DISTRESS. CALL LIGHT IS IN REACH.
--- NOTE | 2022-06-18 05:45 | NUR ---
PT IS AAO X 4, ON RA. PT DENIED ANY DISCOMFORT FOR THIS SHIFT. PT HAD NO APPARENT SIGNS OF DISTRESS. SHE WEARS A CPAP WITH A CONTINUOUS BIOX AT NIGHT.
--- NOTE | 2022-06-18 18:32 | NUR ---
SHIFT SUMMARY PT HAS HAD NO COMPLAINTS THIS SHIFT. PT HAS HAD A GOOD APPETITE. UP IN CHAIR MOST OF THE DAY. NO ACUTE CHANGES THIS SHIFT. WAITING FOR PLACEMENT AT [facility]. CALL LIGHT IN REACH.
--- NOTE | 2022-06-18 19:25 | NUR ---
ASSUMPTION OF CARE: REPORT RECEIVED FROM SONYA BARCENAS. PATIENT UP IN CHAIR WATCHING TV. DENIES C/O AT THIS TIME. WARM BLANKET PROVIDED PER REQUEST. NO OTHER REQUESTS AT THIS TIME.
--- NOTE | 2022-06-18 20:16 | NUR ---
STATUS UPDATE: PATIENT NOW IN BED WATCHING TV. MEDICATIONS ADMINISTERED PER RX. PATIENT DENIES NEEDS, CONCERNS, OR C/O AT THIS TIME. VERY PLEASANT AND COOPERATIVE WITH CARE.
--- NOTE | 2022-06-19 05:12 | NUR ---
SHIFT SUMMARY: PATIENT HAS HAD NO C/O OR REQUESTS THROUGHT THE NIGHT. SLEPT WHEN UNDISTURBED BUT AROUSES EASILY TO VERBAL STIMULI. NO FURTHER CHANGES THIS SHIFT. WILL REPORT TO ONCOMING SHIFT.
--- NOTE | 2022-06-19 18:48 | NUR ---
SHIFT SUMMARY PT HAS HAD NO CHANGES THIS SHIFT. NO COMPLAINTS. GOOD APPETITE. WAITING FOR PLACEMENT AT [facility]. CALL LIGHT IN REACH.
--- NOTE | 2022-06-19 19:00 | NUR ---
RECEIVED REPORT FROM NARINDER HASSAN.
--- NOTE | 2022-06-19 19:16 | NUR ---
PT LYING IN BED WATCHING TV. RESP EVEN ON RA. NO NEEDS AT THIS TIME. INSTRUCTED PT TO USE CALL LIGHT IF SHE NEEDS ANYTHING, PT VERBALIZED YES SHE UNDERSTANDS. WILL CONTINUE TO PROVIDE CARE T/O SHIFT. CALL LT IN REACH.
--- NOTE | 2022-06-19 20:34 | NUR ---
TOOK MEDS WHOLE WITH WATER WITHOUT DIFFICULTY. PLEASANT AND COOPERATIVE WITH CARE. NO ADDITIONAL NEEDS AT THIS TIME. CALL LT IN REACH.
--- NOTE | 2022-06-19 21:54 | NUR ---
DENIES NEEDS. WATCHING TV. CALL LT IN REACH.
--- NOTE | 2022-06-20 01:21 | NUR ---
0.5 MG XANAX GIVEN PER PT REQUEST. NO OTHER NEEDS. CALL LT IN REACH.
--- NOTE | 2022-06-20 02:00 | NUR ---
PT RESTING QUIETLY. CPAP IN PLACE. CALL LT IN REACH.
--- NOTE | 2022-06-20 04:00 | NUR ---
PT RESTING QUIETLY. CPAP IN PLACE. CALL LT IN REACH.
--- NOTE | 2022-06-20 05:54 | NUR ---
PT RESTING QUIETLY. CPAP IN PLACE. CALL LT IN REACH.
--- NOTE | 2022-06-20 05:54 | NUR ---
SHIFT SUMMARY: NO COMPLAINTS OF PAIN, SOB, NAUSEA. A/O. ON RA. STATES NEEDS APPROPRIATELY. USES CALL LT FOR NEEDS. INDEP IN RM. 0.5MG OF XANAX GIVEN PER PT REQUEST. CONTINUES TO HAVE MILD ESSENTIAL TREMORS. MEDS GIVEN WHOLE WITH WATER WITHOUT DIFFICULTY. STOOL SOFTNER HELD PER PT REQUEST, STATES SHE HAD A LOOSE STOOL DURING DAYSHIFT YESTERDAY. NO ACUTE CHANGES. AWAITING PLACEMENT. WILL CONTINUE TO PROVIDE CARE UNTIL SHIFT REPORT.
--- NOTE | 2022-06-20 11:40 | NUR ---
PT SITTING UP IN RECLINER AT THE BEDSIDE, DENIES ANY NEEDS AT THIS TIME
--- NOTE | 2022-06-20 17:47 | NUR ---
SUMMARY PT SITTING UP IN THE CHAIR AT THE BEDSIDE, PT HAS BEEN PLEASANT AND COOPERATIVE WITH CARE T/O THE DAY, NO COMPLAINTS, VSS, WILL CONT TO MONITOR
--- NOTE | 2022-06-21 05:57 | NUR ---
WALL CLEANER SUMMARY: A&Ox4. PLEASANT AND COOPERATIVE WITH CARE. VSS. INDEPENDENT WITHIN ROOM FOR AMBULATION AND TOILETING. COMPLIANT WITH CPAP AT NIGHT. NO C/O PAIN. PRN XANAX FOR ANXIETY ADMINISTERED AT BEDTIME. NO ACUTE CONCERNS. AWAITING PLACEMENT AT [facility] PENDING RESOLUTION OF [place] OUTBREAK. WILL REPORT TO SILVIA BARCENAS.
--- NOTE | 2022-06-21 12:20 | NUR ---
PT SITTING UP IN THE RECLINER AT THE BEDSIDE, DENIES ANY NEEDS A THIS TIME, WILL CONTINUE TO MONITOR
--- NOTE | 2022-06-21 17:33 | NUR ---
SUMMARY PT SITTING UP IN THE RECLINER WATCHING TV, PT HAS HAD A FRIEND COME TO VISIT AND A FACILITY MEMBER COME TO VISIT, PT WITH NO COMPLAINTS T/O THE DAY, VSS, WILL CONT TO MONITOR
--- NOTE | 2022-06-22 05:05 | NUR ---
SHIFT SUMMARY PATIENT IS ALERT AND ORIENTED. PATIENT HAS NOT HAD ANY ACUTE EVENTS THIS SHIFT. VITAL SIGNS REVIEWED. PATIENT HAS BEEN IND IN ROOM. PATIENT HAS NOT HAD ANY COMPLAINTS OF PAIN, NAUSEA, SOB OR VOMITTING. PATIENT HAS REFUSED MORNING VITALS. BED IN LOWEST AND LOCKED POSITION. CALL LIGHT IN PLACE. WILL MONITOR UNTIL SHIFT CHANGE.
--- NOTE | 2022-06-22 17:32 | NUR ---
Shift Summary A/O, pleasant, cooperative. Up ad williams. Xanax x 1 for anxiety with good effect. Good appetite.
--- NOTE | 2022-06-23 05:53 | NUR ---
SHIFT SUMMARY: PT IS ALERT AND ORIENTED. PT IS CALM AND COOPERATIVE WITH CARE. PT CALLS APPROPRIATELY. PT IS INDEPENDENT IN THE ROOM. FAMILY IN VISITING AT THE START OF THE SHIFT. PT REQUESTED PRN XANAX WITH EVENING MEDS, GIVEN. PT DENIES NAUSEA, VOMITING, AND SOB. NO ACUTE CHANGES OR COMPLICATIONS. AWAITING PLACE. WILL REPORT TO DAY NURSE.
--- NOTE | 2022-06-23 16:05 | NUR ---
SHIFT SUMMARY PT IS AOX4. SHE HAS BEEN PLEASANT AND COOPERATIVE ALL SHIFT. HER FIANCE VISITED HER TODAY. SHE TOOK A SHOWER THIS SHIFT. NO CHANGES THIS SHIFT. WILL REPORT TO THE NIGHT NURSE.
--- NOTE | 2022-06-24 05:45 | NUR ---
SHIFT SUMMARY: PT IS ALERT AND ORIENTED, CALM AND COOPERATIVE WITH CARE. PT DENIES PAIN, NAUSEA, VOMITING, AND SOB. NO ACUTE CHANGES OR COMPLICATIONS OVERNIGHT. AWAITING PLACEMENT TO [facility]. BED IN LOW POSITION, CALL LIGHT WITHIN REACH. WILL CONTINUE TO MONITOR AND REPORT TO DAY NURSE.
--- NOTE | 2022-06-24 21:46 | NUR ---
2116 PT SITTING UP IN BED, DENIES ANY DISCOMFORT AT THIS TIME. REQUESTED AND RECIVED XANAX FOR SLEEP. WILL EVAL FOR EFFECT. NO OTHER APPARENT SIGNS OF DISTRESS. CALL LIGHT IS IN REACH.
--- NOTE | 2022-06-25 02:12 | NUR ---
0000 PT LYING IN BED, EYES CLOSED, APPEARS TO BE RESTING. BREATHING IS EVEN, UNLABORED. NO APPARENT SIGNS OF DISTRESS. CALL LIGHT IS IN REACH.
--- NOTE | 2022-06-25 02:12 | NUR ---
PT LYING IN BED, EYES CLOSED, APPEARS TO BE RESTING. BREATHING IS EVEN, UNLABORED. NO APPARENT SIGNS OF DISTRESS. CALL LIGHT IS IN REACH.
--- NOTE | 2022-06-25 06:09 | NUR ---
PT IS AAO X 4, ON RA. DENIED ANY DISCOMFORT FOR THIS SHIFT.
--- NOTE | 2022-06-25 06:09 | NUR ---
0400 PT LYING IN BED, EYES CLOSED, APPEARS TO BE RESTING. BREATHING IS EVEN, UNLABORED. NO APPARENT SIGNS OF DISTRESS. CALL LIGHT IS IN REACH.
[2022-06-25] MEDS ORDERED: HYDROCORTISONE-28 GM TOP (12:58)
[2022-06-25] MEDS ORDERED: NEO-SYNEPHRINE15 ML (12:59)
--- NOTE | 2022-06-26 04:59 | NUR ---
Seems to sleep well t/o the night. Looking foward to moving into [employer]. Denies any medical issues. Sl puffy ankles when feet dependent. Denies SOB or cough.
--- NOTE | 2022-06-26 12:33 | NUR ---
SUMMARY/DISCHARGE PT DISCHARGED TO HOME, [facility], TRANSPORTATION ARRANGEMENTS MADE BY CARE MANAGEMENT, DISCHARGE PAPERS GIVEN TO THE PT, WAITING FOR THE RIDE CURRENTLY
== END 2022-06-26 14:45 | disposition home or self-care (01) ==
LOC: ER 19:12 → PCU 19:13 → MEDS 05-18 16:56 → ENPENDDIS 05-21 15:58 → MEDS 06-26 14:45
PROVIDERS: Student in an Organized Health Care Education/Training Program; ADMIT Family Medicine
DX: T43.212A Poisoning by selective serotonin and norepinephrine reuptake inhibitors, intentional self-harm, initial encounter (principal); T42.4X2A Poisoning by benzodiazepines, intentional self-harm, initial encounter; I10 Essential (primary) hypertension; E78.5 Hyperlipidemia, unspecified; K21.9 Gastro-esophageal reflux disease without esophagitis; G47.30 Sleep apnea, unspecified; I11.0 Hypertensive heart disease with heart failure; R25.1 Tremor, unspecified; E66.9 Obesity, unspecified; F41.9 Anxiety disorder, unspecified; I50.32 Chronic diastolic (congestive) heart failure; E11.40 Type 2 diabetes mellitus with diabetic neuropathy, unspecified; F32.9 Major depressive disorder, single episode, unspecified; Z20.822 Contact with and (suspected) exposure to COVID-19; Z68.36 Body mass index [BMI] 36.0-36.9, adult
CPT/HCPCS: 0241U; 36415; 51701; 80053; 81001; 83735; 84443; 85025; 93005; 93010; 94660; 94760; 94762; 96372; 99285-25; A9270; G0378; G0480; J1650

== ENCOUNTER 2022-08-16 09:03 | Day surgery (SDC) | payer OTHER ==
[~2022-08-16] VITALS: Ht 160 cm; Wt 93.6 kg
[~2022-08-16 09:03] MED LIST changes: +ACET500 PO; +ALPRAZOLAM0.5 M1 PO; +DESVENLAFAXINE50 M3 PO; +HYDROCORTISONE-28 GM TOP; +LOPE2C; +NEO-SYNEPHRINE15 ML; +OZEMPIC0.25 MG/0. SC; +Primidone50 MG PO; +TRAZ50 PO
[2022-08-16] MEDS ORDERED: CITALOPRAM HBR10 MG PO (10:15)
--- NOTE | 2022-08-16 10:38 | NUR ---
08/16/22 BETH WATERMAN 0.15MG OF EPI ADDED TO 30MLS OF ROPIVACAINE 0.5% TO CREATE A LOCAL SOLUTION OF ROPIVACAINE 0.5% WITH EPI 1:200,000. LOCAL POURED ONTO STERILE FIELD FOR USE DURING CASE.
--- NOTE | 2022-08-16 12:21 | NUR ---
08/16/22 [facility] Roslyn Cedeño PATIENT RETURNED TO [facility].
== END 2022-08-16 12:20 | disposition home or self-care (01) ==
LOC: ORSCSDS 09:03
PROVIDERS: Orthopaedic Surgery
PROC: 01X40Z4 Transfer Ulnar Nerve to Ulnar Nerve, Open Approach (ICD-10-PCS; principal; 2022-08-16 10:45)
DX: G56.21 Lesion of ulnar nerve, right upper limb (principal); I10 Essential (primary) hypertension; E11.9 Type 2 diabetes mellitus without complications; E66.9 Obesity, unspecified; Z68.36 Body mass index [BMI] 36.0-36.9, adult; Z79.899 Other long term (current) drug therapy
CPT/HCPCS: 82947; J0171; J0690; J1100; J2250; J2405; J2704; J2795; J3010

== ENCOUNTER → 2023-07-18 | Outpatient (CLI) | payer OTHER ==
[~2023-07-18] MED LIST changes: +CITALOPRAM HBR10 MG PO
== END | disposition home or self-care (01) ==
LOC: LAB SHORT 15:34 → LAB 15:34
DX: N39.0 Urinary tract infection, site not specified (principal)
CPT/HCPCS: 87077; 87086; 87186

== ENCOUNTER → 2024-10-12 | Outpatient (CLI) | payer OTHER | LOC: LAB SHORT 15:34 → LAB 15:34 | DX: N39.0 Urinary tract infection, site not specified (principal) | CPT/HCPCS: 87086 ==

== ENCOUNTER → 2025-06-14 | Outpatient (CLI) | payer OTHER | LOC: LAB SHORT 15:08 → LAB 15:08 | DX: R30.0 Dysuria (principal) | CPT/HCPCS: 87077; 87086; 87186 ==